=== PATIENT | male | born 1975 | race Caucasian/White ===

== ENCOUNTER 2017-05-30 01:45 | Emergency (ER) | payer OTHER ==
[2017-05-30] MEDS ORDERED: Dexamethasone 10 MG/ML VIAL ONE (03:30)
[2017-05-30] MEDS ORDERED: Bicillin LA 1.2 MILLION UNITS/2 ML SYRINGE ONE (03:30)
== END 2017-05-30 03:57 | disposition home or self-care (01) ==
LOC: ERS 01:45
DX: J02.0 Streptococcal pharyngitis (principal)
CPT/HCPCS: 96372; J0561; J1100

== ENCOUNTER 2017-10-27 10:48 | Emergency (ER) | payer OTHER ==
[2017-10-27] MEDS ORDERED: Fluorescein Opthalmic Strip ONE (12:31)
[2017-10-27] MEDS ORDERED: Proparacaine 0.5% Opth 15 ML BOT ONE (12:31)
== END 2017-10-27 13:04 | disposition home or self-care (01) ==
LOC: ERS 10:48
DX: H57.11 Ocular pain, right eye (principal)
CPT/HCPCS: 99283

== ENCOUNTER 2018-08-10 08:32 | Emergency (ER) | payer OTHER, SELFPAY | END 2018-08-10 10:25 | disposition home or self-care (01) | LOC: ERS 08:32 | DX: S61.211A Laceration without foreign body of left index finger without damage to nail, initial encounter (principal); W26.8XXA Contact with other sharp object(s), not elsewhere classified, initial encounter | CPT/HCPCS: 12001 ==

== ENCOUNTER 2025-01-13 13:15 | Outpatient (CLI) | payer OTHER | END 2025-01-13 13:16 | disposition home or self-care (01) | LOC: SCSMRI 13:15 | PROVIDERS: ATTEND Internal Medicine | DX: M54.51 Vertebrogenic low back pain (principal) | CPT/HCPCS: 72148 ==